=== PATIENT | female | born 1975 | race Caucasian/White ===

== ENCOUNTER 2017-09-25 10:52 | Emergency (ER) | payer OTHER ==
[~2017-09-25] VITALS: Ht 162.6 cm; Wt 74.8 kg
[2017-09-25] MEDS ORDERED: CENTRUM SILVER1 EAC4 PO (11:01)
[2017-09-25 11:17] LABS: ABSOLUTE EOSINOPHILS 0.1 thou/uL (0.0-0.7); ABSOLUTE LYMPHOCYTES 0.9 thou/uL (0.8-5.3); ABSOLUTE MONOCYTES 0.5 thou/uL (0.0-1.2); ABSOLUTE NEUTROPHILS 2.5 thou/uL (1.6-8.1); BASOPHILS 0.8 %; EOSINOPHILS 2.6 %; HEMATOCRIT 39.8 % (37.0-47.0); HEMOGLOBIN 13.6 gm/dL (12.0-15.0); LYMPHOCYTES 22.4 %; MCH 32.6 pg (26.0-34.0); MCHC 34.2 g/dL (28.0-37.0); MCV 95.4 fL (80.0-100.0); MONOCYTES 11.9 %; MPV 8.3 fl. (7.2-11.1); NUCLEATED RBCS 0 /100WBC; PLATELET COUNT* 270 thou/uL (150-400); POLYS 62.3 %; RBC 4.17 mil/uL (4.20-5.00); RDW-CV 12.7 % (10.5-14.5)
[2017-09-25 11:25] LABS: ANION GAP 8 mmol/L (7-16); BUN 10 mg/dL (7-18); CALCIUM 8.6 mg/dL (8.5-10.1); CHLORIDE 106 mmol/L (98-107); CO2 25 mmol/L (21-32); CREATININE 0.9 mg/dL (0.6-1.3); GLUCOSE 100 mg/dL (70-99); POTASSIUM 3.7 mmol/L (3.5-5.1); SODIUM 139 mmol/L (136-145)
[2017-09-25 11:31] LABS: ALBUMIN 3.7 g/dL (3.4-5.0); ALKALINE PHOSPHATASE 62 U/L (46-116); LIPASE 139 U/L (73-393); SGOT 19 U/L (15-37); SGPT 24 U/L (30-65); TOTAL BILIRUBIN 0.4 mg/dL (<0.1-1.0); TOTAL PROTEIN 7.2 g/dL (6.4-8.2); TROPONIN-I LEVEL <0.06 ng/mL (<0.06)
[2017-09-25 11:48] VITALS: BP 130/74
--- NOTE | 2017-09-28 11:02 | EKG ---
[place] [address] ELECTROCARDIOGRAM REPORT Name: ZAID DE LA PAZ Room: [facility]#: [id number] Admission: 09/25/17 Attend Phys: Discharge: 09/25/17 Date of : 73 Report #: [id number] THIS REPORT FOR: //name// [facility] ED Test Date: 2017-09-25 Test Time: 10:56:54 Pat Name: ZAID DE LA PAZ Department: Room: Gender: F Fulfillment Associate: . : 1975 Requested By: Donald Davila Order Number: [id number] MD: Patrice Avendaño Measurements Intervals [place] Rate: 71 P: 33 CT: 141 QRS: -4 QRSD: 93 T: 26 QT: 397 QTc: 432 Interpretive Statements Sinus rhythm No previous ECG available for comparison Electronically Signed On 09-28-2017 11:02:14 CDT by Patrice Avendaño [email or web address] <ELECTRONICALLY SIGNED> By: Patrice Avendaño MD, [facility] 09/28/17 1102 [id number] [id number] Patrice Avendaño MD, FACC /EPI
== END 2017-09-25 11:49 | disposition home or self-care (01) ==
LOC: M.ERS 10:52
PROVIDERS: Emergency Medicine
DX: R07.89 Other chest pain (principal); M54.2 Cervicalgia; R42 Dizziness and giddiness; F41.9 Anxiety disorder, unspecified; Z90.710 Acquired absence of both cervix and uterus; Z88.5 Allergy status to narcotic agent; Z98.890 Other specified postprocedural states